=== PATIENT | male | born 1975 | race Two or more races ===

== ENCOUNTER 2017-03-29 23:48 | Emergency (ER) | payer OTHER ==
[~2017-03-29] VITALS: Ht 180.3 cm; Wt 106.6 kg
[2017-03-30] MEDS ORDERED: PROMETHAZINE HCL 25 MG/1 ML VIAL IM ONE (00:15)
[2017-03-30] MEDS ORDERED: HYDROMORPHONE 1 MG/1 ML DISP.SYRIN IM ONE (00:15)
[2017-03-30] MEDS ORDERED: PROMETHAZINE HCL 25 MG/1 ML VIAL ONE (00:32)
[2017-03-30] MEDS ORDERED: HYDROMORPHONE 2 MG/1 ML DISP.SYRIN ONE (00:32)
--- NOTE | 2017-03-30 00:33 | NUR ---
Pt ambulated to room with steady gait. Pt c/o severe L. flank pain for several days but denies painful urination. Pt seen by Dr. Metcalf. UA collected and sent, awaiting results. Pt medicated for discomfort, will monitor for effects of medication. Pt repositioned for comfort.
[2017-03-30 00:34] LABS: *BILIRUBIN,URIN NEGATIVE (NEGATIVE); *BLOOD, URINE 2+ (NEGATIVE); *CLARITY,URINE CLEAR (CLEAR); *COLOR,URINE YELLOW (YELLOW); *KETONES,URINE TRACE (NEGATIVE); *PROTEIN,URINE 1+ (NEGATIVE); LEUKOCYTE ESTERASE ,URINE NEGATIVE (NEGATIVE); NITRITE, URINE NEGATIVE (NEGATIVE); UGLUCOSE NEGATIVE (NEGATIVE)
[2017-03-30 00:37] LABS: BACTERIA,URINE NONE SEEN /HPF (NONE SEEN); WBC,URINE 0-3 /HPF (0-3)
[2017-03-30 00:38] LABS: SQUAMOUS EPITHELIAL CELL,UR FEW /HPF (NONE SEEN)
--- NOTE | 2017-03-30 01:00 | NUR ---
Pt to and from CT via [facility]. Pt resting in position of comfort for self. Pt sts no real change in pain with medication but declines further medication at this time.
--- NOTE | 2017-03-30 01:56 | NUR ---
Dr. Metcalf aware of pts blood pressure. Pt stable for discharge per Dr. Metcalf. Pt given ACI. Pt verbalized understanding of dc instructions. Pt ambulated out of ER with steady gait and ride home.
[2017-03-30 01:58] VITALS: BP 154/107
== END 2017-03-30 01:58 | disposition home or self-care (01) ==
LOC: ER 23:53
DX: M54.9 Dorsalgia, unspecified (principal); R10.9 Unspecified abdominal pain; Z88.0 Allergy status to penicillin
CPT/HCPCS: A4663; J1170; J2550